=== PATIENT | female | born 1945 | race Caucasian/White ===

== ENCOUNTER 2024-05-05 09:19 | Day surgery (SDC) | payer MEDICARE, OTHER ==
[2024-05-01 10:07] VITALS: BMI 29.2
[~2024-05-05 09:19] MED LIST: SODIUM CHLORIDE 0.9% 1,000 ML IV SCH
[2024-05-05] MEDS: SODIUM CHLORIDE 0.9% 500 ML 500 ML IV ONE (09:34)
[2024-05-05 09:47] LABS: Glucose,Whole Blood 149 mg/dL (70-110)
[2024-05-05 09:55] VITALS: TEMP 98.4
[2024-05-05] MEDS ORDERED: PROPOFOL 10 MG/ML 20 ML VIAL IV ONE (10:56)
--- NOTE | 2024-05-05 12:07 | P.EPPROC ---
- EP Procedure Note Electrophysiology Procedure Note: Diagnosis Symptomatic atrial fibrillation, persistent Procedure Successful electrical cardioversion to sinus rhythm with a 200 J biphasic shock However there was immediate recurrence of atrial fibrillation 2 attempts were made and on both occasions there was immediate recurrence of atrial fibrillation Plan Will discuss rhythm control option with the patient since she is symptomatic despite adequate rate control Continue anticoagulation with Eliquis Currently patient is on diltiazem 180 mg p.o. daily
[2024-05-05 13:24] LABS: ALT 12 U/L (4-34); AST 19 U/L (14-36); African American GFR (CKD) 52 (>60 ml/min/1.73 sqM); Albumin 3.9 g/dL (3.5-5.0); Alkaline Phosphatase 141 U/L (38-126); Anion Gap 10 mmol/L; Blood Urea Nitrogen 23 mg/dL (7-17); Calcium 9.7 mg/dL (8.4-10.2); Carbon Dioxide 20 mmol/L (22-30); Chloride 108 mmol/L (98-107); Glucose 149 mg/dL (74-99); Non-African American GFR(CKD) 45 (>60 ml/min/1.73 sqM); Sodium 138 mmol/L (137-145); Total Bilirubin 0.6 mg/dL (0.2-1.3); Total Protein 6.9 g/dL (6.3-8.2)
[2024-05-05 14:52] VITALS: RESP 16
[2024-05-05 14:56] VITALS: BP 137/82; PULSE 86
[2024-05-05 15:33] LABS: T4, Free (Free Thyroxine) 2.19 ng/dL (0.78-2.19)
--- NOTE | 2024-05-05 17:15 | P.EPPROC ---
- EP Procedure Note Electrophysiology Procedure Note: This is Dr. Crowder dictating an H/P on this patient The patient was interviewed and examined IMPRESSION / ASSESSMENT: Persistent atrial fibrillation Complaining of tiredness shortness of breath exertional symptoms History of asthma Moderate carotid atherosclerosis hypertension Type 2 diabetes for about 7 years On replacement therapy for hypothyroidism Currently on Eliquis 5 mg twice daily PLAN: In view of her symptomatic atrial fibrillation despite adequate rate control electrical cardioversion is recommended Continue Eliquis HPI Patient remains tired fatigued short of breath despite rate control of atrial fibrillation No recent syncopal spells dizziness loss of consciousness ROS: No fever chills or rigors, no cough, phlegm or expectoration, no nausea, vomiting or diarrhea, no hematuria, dysuria, no musculoskeletal complaints, no strokes or seizures, no skin lesions. EXAMINATION: Blood pressure 180/84 mmHg pulse rate 128 beats a minute afebrile Breath sounds are reduced bilaterally Heart sounds S1-S2 are irregular but normal Mild kyphosis noted REVIEW OF LABS, ECG & MEDICAL DATA Medication list includes atorvastatin 20 mg p.o. daily, lisinopril 10 mg daily, levothyroxine 112 mcg p.o. daily Eliquis 5 mg twice daily and diltiazem long- acting 180 mg p.o. daily
== END 2024-05-05 13:07 | disposition home or self-care (01) ==
LOC: CATHEP 09:19
PROVIDERS: ATTEND Internal Medicine Clinical Cardiac Electrophysiology
DX: I48.19 Other persistent atrial fibrillation (principal); J45.909 Unspecified asthma, uncomplicated; E11.69 Type 2 diabetes mellitus with other specified complication; E78.5 Hyperlipidemia, unspecified; I10 Essential (primary) hypertension; I65.29 Occlusion and stenosis of unspecified carotid artery; E03.9 Hypothyroidism, unspecified; Z82.49 Family history of ischemic heart disease and other diseases of the circulatory system; Z88.5 Allergy status to narcotic agent; Z88.8 Allergy status to other drugs, medicaments and biological substances; Z91.09 Other allergy status, other than to drugs and biological substances; Z79.51 Long term (current) use of inhaled steroids; Z79.84 Long term (current) use of oral hypoglycemic drugs; Z79.890 Hormone replacement therapy; Z79.01 Long term (current) use of anticoagulants; Z79.899 Other long term (current) drug therapy
CPT/HCPCS: 92960; 84439; 80053; 84443; J2704

== ENCOUNTER 2024-07-14 06:00 | Day surgery (SDC) | payer MEDICARE, OTHER ==
[2024-07-14 06:26] LABS: Glucose,Whole Blood 163 mg/dL (70-110)
[2024-07-14 06:37] LABS: Anisocytosis Slight; Basophils # (A) 0.1 k/uL (0-0.2); Basophils % (A) 1 %; Eosinophils # (A) 0.6 k/uL (0-0.7); Eosinophils % (A) 7 %; HCT 37.8 % (34.0-46.0); HGB 12.2 gm/dL (11.4-16.0); Hypochromasia Slight; Lymphocytes # (A) 0.4 k/uL (1.0-4.8); Lymphocytes % (A) 5 %; MCH 25.2 pg (25.0-35.0); MCHC 32.2 g/dL (31.0-37.0); MCV 78.3 fL (80.0-100.0); Mean Platelet Volume 6.8; Microcytosis Slight; Monocytes # (A) 0.5 k/uL (0-1.0); Monocytes % (A) 6 %; Neutrophils # (A) 6.5 k/uL (1.3-7.7); Neutrophils % (A) 79 %; Platelet Count 304 k/uL (150-450); RBC 4.82 m/uL (3.80-5.40); RDW 16.2 % (11.5-15.5); WBC 8.2 k/uL (3.8-10.6)
[2024-07-14 06:55] LABS: ALT 11 U/L (4-34); AST 19 U/L (14-36); African American GFR (CKD) 49 (>60 ml/min/1.73 sqM); Albumin 3.8 g/dL (3.5-5.0); Alkaline Phosphatase 144 U/L (38-126); Anion Gap 8 mmol/L; Blood Urea Nitrogen 22 mg/dL (7-17); Calcium 9.3 mg/dL (8.4-10.2); Carbon Dioxide 24 mmol/L (22-30); Chloride 106 mmol/L (98-107); Glucose 168 mg/dL (74-99); Non-African American GFR(CKD) 42 (>60 ml/min/1.73 sqM); Potassium 3.9 mmol/L (3.5-5.1); Sodium 138 mmol/L (137-145); Total Bilirubin 0.6 mg/dL (0.2-1.3); Total Protein 6.7 g/dL (6.3-8.2)
[2024-07-14] MEDS ORDERED: HEPARIN SODIUM,PORCINE 10,000 UNIT/ML 1 ML VIAL ONE (07:21)
[2024-07-14] MEDS ORDERED: KETAMINE HCL IN 0.9 % NACL 50 MG/5 ML SYRINGE ONE (07:21)
[2024-07-14] MEDS ORDERED: MIDAZOLAM 2 MG/2 ML VIAL ONE (07:21)
[2024-07-14] MEDS ORDERED: HEPARIN SODIUM,PORCINE 5,000 UNIT/ML 1 ML VIAL ONE (07:21)
[2024-07-14] MEDS ORDERED: SUCCINYLCHOLINE CHLORIDE 200 MG/10 ML VIAL IV ONE (07:21)
[2024-07-14] MEDS ORDERED: PHENYLEPHRINE 10 MG/ML VIAL ONE (07:21)
[2024-07-14] MEDS ORDERED: fentaNYL (PF) 50 MCG/ML 2 ML AMP ONE (07:21)
[2024-07-14] MEDS ORDERED: PROPOFOL 10 MG/ML 20 ML VIAL IV ONE (07:21)
[2024-07-14] MEDS ORDERED: LIDOCAINE 1% INJ 10MG/ML (20 ML MDV) ONE (07:21)
[2024-07-14] MEDS: IV FLUID CONTINUATION 1,000 ML IV ONE (07:26)
[2024-07-14] MEDS: HEPARIN SODIUM,PORCINE 10,000 UNIT in SODIUM CHLORIDE 0.9% 1,000 ML IRRIGATION ONE (08:08)
[2024-07-14] MEDS: HEPARIN SODIUM,PORCINE (1 ML) 2,500 UNIT in SODIUM CHLORIDE 0.9% 250 ML IRRIGATION ONE (08:08)
[2024-07-14] MEDS: HEPARIN SOD,PORK IN 0.45% NACL 25,000 UNIT in 0.45% NACL 1 250ML.BAG IV ONE (08:10)
[2024-07-14] MEDS: LIDOCAINE 1% INJ 10MG/ML (20 ML MDV) SQ ONE (08:17)
[2024-07-14] MEDS: IOPAMIDOL-370 100ML BTL INJ ONE (10:06)
[2024-07-14] MEDS ORDERED: ALBUTEROL NEBULIZED 2.5 MG/3 ML INHALATION PRN (10:38)
--- NOTE | 2024-07-14 10:48 | P.HPCAR ---
History of Present Illness This is Dr. Crowder dictating an H/P on this patient The patient was interviewed and examined IMPRESSION / ASSESSMENT: Atrial fibrillation, persistent, symptomatic and failed treatment Hypertension Type 2 diabetes History of asthma PLAN: Treat with A-fib ablation for symptomatic atrial fibrillation Increase dose of lisinopril to 40 mg p.o. daily HPI Patient remains in atrial fibrillation with elevated resting heart rates despite diltiazem 180 mg p.o. daily long-acting She complains of symptoms of tiredness fatigue and shortness of breath Denies any chest pain syncope orthopnea PND transfer to [facility] [[email or web address]]: No fever chills or rigors, no cough, phlegm or expectoration, no nausea, vomiting or diarrhea, no hematuria, dysuria, no musculoskeletal complaints, no strokes or seizures, no skin lesions. EXAMINATION: Pulse rate 123 beats a minute blood pressure 183/82 mmHg at 205/88 mmHg afebrile Breath sounds are reduced bilaterally with scattered rhonchi no crackles Heart sounds S1-S2 normal no murmurs No JVD Abdomen soft nontender Extremities warm no edema REVIEW OF LABS, ECG & MEDICAL DATA White count 8.2 thousand, hemoglobin 12.2, hematocrit 37.8 and platelet count 304,000 Normal electrolytes sodium 138, potassium 3.9 BUN 22 and creatinine 1.2 Elevated glucose Mildly elevated alkaline phosphatase Physical Exam Vitals: Vital Signs Temp Pulse Resp BP BP Pulse Ox 07/14/24 06:18 98.4 F 123 H 16 205/88 183/82 94 L Intake and Output 07/13/24 07/14/24 07/14/24 22:59 06:59 14:59 Intake Total 800 Balance 800 Intake: IV 800 Other: Weight 81.5 kg Past Medical History Past Medical History: Atrial Fibrillation, Asthma, Diabetes Mellitus, Hypertension Additional Past Medical History / Comment(s): See Dr Crowder's H&P, current UTI and tx-pt to notify Dr Crowder, Hx went in for colonoscopy and bowel was twisted and adhereing to abdominal wall-had bowel resection-January 2024, 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 History of Any Multi-Drug Resistant Organisms: None Reported Past Surgical History: Bowel Resection, Hysterectomy, Orthopedic Surgery Additional Past Surgical History / Comment(s): jean shoulders rebuilt Past Anesthesia/Blood Transfusion Reactions: No Reported Reaction Additional Past Anesthesia/Blood Transfusion Reaction / Comment(s): no hx blood transfusion Smoking Status: Never smoker - Past Family History Mother Family Medical History: Cancer Additional Family Medical History / Comment(s): rectal CA Daughter(s) Family Medical History: Cancer Additional Family Medical History / Comment(s): uterine sarcoma, bladder cancer Physical Examination Vital Signs Temp Pulse Resp BP BP Pulse Ox 07/14/24 06:18 98.4 F 123 H 16 205/88 183/82 94 L Intake and Output 07/13/24 07/14/24 07/14/24 22:59 06:59 14:59 Intake Total 800 Balance 800 Intake: IV 800 Other: Weight 81.5 kg Results 07/14/24 06:20 07/14/24 06:20 Cardiac Enzymes 07/14/24 Range/Units 06:20 AST 19 (14-36) U/L CBC 07/14/24 Range/Units 06:20 WBC 8.2 (3.8-10.6) k/uL RBC 4.82 (3.80-5.40) m/uL Hgb 12.2 (11.4-16.0) gm/dL Hct 37.8 (34.0-46.0) % Plt Count 304 (150-450) k/uL Comprehensive Metabolic Panel 07/14/24 Range/Units 06:20 Sodium 138 (137-145) mmol/L Potassium 3.9 (3.5-5.1) mmol/L Chloride 106 (98-107) mmol/L Carbon Dioxide 24 (22-30) mmol/L BUN 22 H (7-17) mg/dL Creatinine 1.22 H (0.52-1.04) mg/dL Glucose 168 H (74-99) mg/dL Calcium 9.3 (8.4-10.2) mg/dL AST 19 (14-36) U/L ALT 11 (4-34) U/L Alkaline Phosphatase 144 H (38-126) U/L Total Protein 6.7 (6.3-8.2) g/dL Albumin 3.8 (3.5-5.0) g/dL Current Medications Generic Name Dose Route Start Last Admin Trade Name Freq PRN Reason Stop Dose Admin Acetaminophen 650 mg 07/14/24 10:41 Acetaminophen Tab 325 Mg Tab PO 08/13/24 10:40 Q6HR PRN Mild Pain (Scale 1 to 3) Albuterol Sulfate 2 puff 07/14/24 10:38 Albuterol Hfa Inhaler INHALATION 08/13/24 10:37 RT-Q4H PRN Shortness Of Breath Albuterol/Ipratropium 3 ml 07/14/24 10:38 Ipratropium-Albuterol 3 Ml Neb INHALATION 08/13/24 10:37 Q6H PRN sob Apixaban 5 mg 07/14/24 21:00 Apixaban 5 Mg Tab PO 08/13/24 20:59 BID ED Protocol Atorvastatin Calcium 20 mg 07/15/24 09:00 Atorvastatin 20 Mg Tab PO 08/14/24 08:59 DAILY ED Budesonide 0.5 mg 07/14/24 10:38 Budesonide 0.5 Mg/2 Ml Nebu INHALATION 08/13/24 10:37 RT-BID PRN Shortness Of Breath Acetaminophen 1,000 mg/ IV 100 mls @ 400 mls/hr 07/14/24 10:41 Solution IVPB 07/14/24 10:55 ONCE ONE Levothyroxine Sodium 112 mcg 07/15/24 09:00 Levothyroxine 112 Mcg Tab PO 08/14/24 08:59 QAM DE Lisinopril 20 mg 07/14/24 21:00 Lisinopril 5 Mg Tab PO 08/13/24 20:59 BID ED Montelukast Sodium 10 mg 07/15/24 09:00 Montelukast 10 Mg Tab PO 08/14/24 08:59 DAILY ED Non-Formulary Medication 180 mg 07/15/24 09:00 Diltiazem Hcl [Cardizem La] PO 08/14/24 08:59 DAILY ED Non-Formulary Medication 5 mg 07/15/24 09:00 Glipizide Xl PO 08/14/24 08:59 QAM ED Non-Formulary Medication 20 mg 07/14/24 21:00 Omeprazole [Omeprazole] PO 08/13/24 20:59 HS ED Sodium Chloride 12 ml 07/14/24 10:41 Sodium Chloride 0.9% Flush 10 Ml Syringe IV 08/13/24 10:40 Q12HR PRN Line Flush Intake and Output 07/13/24 07/14/24 07/14/24 22:59 06:59 14:59 Intake Total 800 Balance 800 Intake: IV 800 Other: Weight 81.5 kg 07/14/24 06:20 07/14/24 06:20
[2024-07-14 11:05] LABS: Glucose,Whole Blood 183 mg/dL (70-110)
--- NOTE | 2024-07-14 11:15 | P.EPPROC ---
- EP Procedure Note Electrophysiology Procedure Note: PROCEDURE Persistent A. fib ablation with PVI, left atrial septal ablation, left atrial roof ablation DIAGNOSIS Persistent atrial fibrillation, symptomatic, refractory to therapy RESULT No left atrial appendage mass seen on intracardiac echo, thickened pericardium with trace pericardial effusion predominantly around the atria Successful A. fib ablation/pulmonary vein isolation of all veins using cryo- ablation Complete entrance block in all 4 veins confirmed No evidence for phrenic nerve injury Left atrial septal ablation Left atrial roof ablation Ablation of tissue/teodora between left superior and left inferior pulmonary veins Esophageal deflection YES Patient remained in atrial fibrillation despite above ablations Electrical cardioversion with a synchronized shock across the chest YES PROCEDURE DETAILS Written informed consent prior to procedure. Patient brought to the EP lab. General anesthesia given. Heparin administered. A city maintained above 300 seconds Both groins prepped and draped per protocol and venous sheaths placed. Esophagus intubated, circa catheter for temperature monitoring an endoscope for possible esophageal deflection. Phrenic nerve monitoring performed. Esophageal temperature monitoring performed. Esophageal deflection performed if circa catheter overlapping with the balloon or circa temperature less than 27.5C Intracardiac echocardiography performed. Pericardium evaluated. Left atrial appendage evaluated. Left atrium evaluated along with pulmonary veins Transseptal catheterization performed under fluoroscopic guidance and intracardiac echo guidance Cryoablation sheath exchanged, balloon catheter along with achieve catheter placed in the left atrium. Pulmonary veins isolated in the following sequence: Left superior pulmonary vein followed by left inferior pulmonary vein, followed by right inferior pulmonary vein and lastly right superior pulmonary vein. Phrenic nerve stimulation along with capture thresholds within the SVC and right superior pulmonary vein to identify the phrenic nerve proximity to the cryo- balloon. Pulmonary veins isolated and confirmed with entrance and exit block. Phrenic nerve integrity confirmed at the end of the procedure Ablation of the left atrial roof performed with sequential lesions from the left superior to the right superior pulmonary veins. Ablation of the electrograms confirmed Ablation of the left atrial septum performed with cannulation of the superior branch of the right inferior to achieve ablation of the posterior septum of the left atrium. Ablation of electrograms confirmed Electrical cardioversion performed for persistence of atrial fibrillation alanis pite successful ablation. Diagnostic catheters for the high right atrium, His bundle, coronary sinus placed. LA and RA pressures recorded RA pressure: 10/4/7 LA pressure: 17/2/9 Diagnostic EP study with coronary sinus pacing and recording Baseline measurements: AH 84 HV 43 ms Sinus cycle length 884 ms, post cardioversion with TN interval 172 ms, QRS 93 and QT 322 ms Venous sheaths were removed and hemostasis assured with a closure device. Patient extubated and transferred to recovery PROCEDURES PERFORMED Diagnostic EP study CS pacing and recording Left and right transseptal catheterization Catheter the mapping of the tachycardia Intracardiac echocardiography Pulmonary vein isolation with transseptal and comprehensive EPS, [id number] Left atrial roof line, +[id number] Linear ablation, left atrium, +[id number] Electrical cardioversion with a synchronized shock across the chest [id number]
[2024-07-14] MEDS: ACETAMINOPHEN IV (For NPO) 1,000 MG in EMPTY BAG 1 BAG IVPB ONE (12:02)
[2024-07-14 12:10] LABS: Glucose,Whole Blood 150 mg/dL (70-110)
[2024-07-14] MEDS: SODIUM CHLORIDE 0.9% 1,000 ML IV SCH (15:01)
[2024-07-14 17:23] LABS: Glucose,Whole Blood 215 mg/dL (70-110)
[2024-07-14 20:06] LABS: Glucose,Whole Blood 213 mg/dL (70-110)
[2024-07-14] MEDS: PANTOPRAZOLE 40 MG TABLET PO SCH (20:13)
[2024-07-14] MEDS: lisinopriL 20 MG TAB PO SCH (20:13)
[2024-07-14] MEDS: ACETAMINOPHEN TAB 325 MG TAB PO PRN (20:13)
[2024-07-14] MEDS: APIXABAN 5 MG TAB PO SCH (23:15)
[2024-07-15 05:48] LABS: Glucose,Whole Blood 167 mg/dL (70-110)
[2024-07-15] MEDS: LEVOTHYROXINE 112 MCG TAB PO SCH (05:48)
[2024-07-15] MEDS: IPRATROPIUM-ALBUTEROL 3 ML NEB INHALATION PRN (07:50)
[2024-07-15] MEDS: BUDESONIDE 0.5 MG/2 ML NEBU INHALATION PRN (07:50)
[2024-07-15] MEDS: DILTIAZEM CD 180 MG CAP.ER.24H PO SCH (09:46)
[2024-07-15] MEDS: ATORVASTATIN 20 MG TAB PO SCH (09:46)
[2024-07-15] MEDS: MONTELUKAST 10 MG TAB PO SCH (09:46)
[2024-07-15 12:11] LABS: Glucose,Whole Blood 182 mg/dL (70-110)
[2024-07-15 16:02] VITALS: BP 178/70; PULSE 85; RESP 20; TEMP 98.6
== END 2024-07-15 16:29 | disposition home or self-care (01) ==
LOC: CATHEP 06:00 → 6NMEDSUR 10:12 → CATHEP 07-15 16:29
PROVIDERS: ATTEND Internal Medicine Clinical Cardiac Electrophysiology
CPT/HCPCS: 80053; 85025; 86850; 86900; 86901; 92960; 93656; 93657; 94640

== ENCOUNTER 2024-08-03 11:39 | Observation (INO) | payer MEDICARE, OTHER ==
--- NOTE | 2024-08-03 12:30 | ED ---
General Adult HPI - General Chief complaint: Arrhythmia/Palpitations Stated complaint: Tachycardia Time Seen by Provider: 08/03/24 12:05 Source: patient, family, RN notes reviewed Mode of arrival: ambulatory Limitations: no limitations - History of Present Illness Initial comments: Patient is a 78-year-old female presenting to the emergency department with concerns for high heart rate. Patient does have history of A-fib, ablation done 2 weeks ago. Patient has been doing fine. Patient is on Eliquis for DVT as well as A-fib. Patient was at her doctors today and heart rate was high and advised to come to the emergency department. No palpitations. No chest pain. No dyspnea - Related Data Home Medications Medication Instructions Recorded Confirmed Albuterol Sulfate [Ventolin HFA] 2 puff INHALATION RT-Q4H PRN 06/11/22 08/03/24 Omeprazole 20 mg PO HS 06/11/22 08/03/24 Apixaban [Eliquis] 5 mg PO BID 05/01/24 08/03/24 Atorvastatin [Lipitor] 20 mg PO HS 05/01/24 08/03/24 Montelukast Sodium 10 mg PO DAILY 05/01/24 08/03/24 Diltiazem Cd [Cardizem CD] 180 mg PO DAILY 08/03/24 08/03/24 Levothyroxine Sodium [Synthroid] 100 mcg PO DAILY 08/03/24 08/03/24 glipiZIDE XL [Glucotrol Xl] 5 mg PO DAILY 08/03/24 08/03/24 lisinopriL 40 mg PO HS 08/03/24 08/03/24 Allergies Allergy/AdvReac Type Severity Reaction Status Date / Time adhesive tape Allergy blisters,must Verified 08/03/24 12:17 use paper tape hydromorphone [From Dilaudid] Allergy Nausea & Verified 08/03/24 12:17 Vomiting perservative in epinephrine AdvReac vomits for Uncoded 08/03/24 12:17 3 days Review of Systems ROS Statement: Those systems with pertinent positive or pertinent negative responses have been documented in the HPI. ROS Other: All systems not noted in ROS Statement are negative. 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 History of Any Multi-Drug Resistant Organisms: None Reported Past Surgical History: Bowel Resection, Hysterectomy, Orthopedic Surgery Additional Past Surgical History / Comment(s): jean shoulders rebuilt Past Anesthesia/Blood Transfusion Reactions: No Reported Reaction Additional Past Anesthesia/Blood Transfusion Reaction / Comment(s): no hx blood transfusion Past Psychological History: No Psychological Hx Reported Smoking Status: Never smoker Past Alcohol Use History: None Reported Past Drug Use History: None Reported - Past Family History Mother Family Medical History: Cancer Additional Family Medical History / Comment(s): rectal CA Daughter(s) Family Medical History: Cancer Additional Family Medical History / Comment(s): uterine sarcoma, bladder cancer General Exam Limitations: no limitations General appearance: alert, in no apparent distress Head exam: Present: normocephalic Eye exam: Present: normal appearance Neck exam: Present: normal inspection Respiratory exam: Present: normal lung sounds bilaterally Cardiovascular Exam: Present: tachycardia, irregular rhythm Expanded Peripheral pulses: 2+: Radial (R), Radial (L), Posterior Tibialis (R), Posterior Tibialis (L) GI/Abdominal exam: Present: soft. Absent: tenderness Extremities exam: Present: calf tenderness (Left-sided with known DVT) Neurological exam: Present: alert Psychiatric exam: Present: normal affect, normal mood Skin exam: Present: normal color Course Vital Signs 08/03/24 08/03/24 08/03/24 11:40 12:03 13:43 Temperature 97.9 F 99.3 F Pulse Rate 135 H 111 H 97 Pulse Rate [ 104 H Label Designer ] Respiratory 18 18 18 Rate Blood Pressure 166/109 176/97 158/82 O2 Sat by Pulse 98 99 97 Oximetry EKG Findings - EKG Results: EKG: interpreted by ERMD (Q wave V1 V2.), normal axis, normal ST/T EKG shows: tachycardia, atrial fibrillation Medical Decision Making - Medical Decision Making Was pt. sent in by a medical professional or institution (Dr., PA, RELATIONSHIP EXECUTIVE, urgent care, hospital, or group home...) When possible be specific @ -Patient was sent in by her primary care physician Did you speak to anyone other than the patient for history (EMS, parent, family, police, friend...)? What history was obtained from this source @ -Family is present and helps provide history including history of A-fib and previous medical history Did you review nursing and triage notes (agree or disagree)? Why? @ -I reviewed and agree with nursing and triage notes Were old charts reviewed (outside hosp., previous admission, EMS record, old EKG, old radiological studies, urgent care reports/EKG's, group home records)? Report findings @ -Previous chest x-ray also reviewed revealed no acute process Differential Diagnosis (chest pain, altered mental status, abdominal pain women, abdominal pain men, vaginal bleeding, weakness, fever, dyspnea, syncope, headache, dizziness, GI bleed, back pain, seizure, CVA, palpatations, mental health, musculoskeletal)? @ -Differential Palpitations Ventricular arrhythmias, atrial arrhythmias, myocardial infarction, anemia, thyrotoxicosis, electrolyte imbalance, hypokalemia, pulmonary embolism, pulmonary disease, drugs, alcohol, anxiety, stress.... This is not meant to be an all-inclusive list. EKG interpreted by me (3pts min.). @ -As above X-rays interpreted by me (1pt min.). @ -Chest x-ray shows no acute process CT interpreted by me (1pt min.). @ -None done U/S interpreted by me (1pt. min.). @ -None done What testing was considered but not performed or refused? (CT, X-rays, U/S, labs)? Why? @ -None What meds were considered but not given or refused? Why? @ -None Did you discuss the management of the patient with other professionals (professionals i.e. ROSA Larson, RELATIONSHIP EXECUTIVE, lab, RT, psych nurse, social services counselor, consultants intern, t eacher, safety and security officer, family preservation caseworker)? Give summary @ -Case was discussed with both Dr. Anton and Dr. Varner covering for Dr. Montejo who will admit covering Dr. Weiss Was smoking cessation discussed for >3mins.? @ -No Was critical care preformed (if so, how long)? @ -31 minutes critical care time Were there social determinants of health that impacted care today? How? (Homelessness, low income, unemployed, alcoholism, drug addiction, transportation, low edu. Level, literacy, decrease access to med. care, [facility], rehab)? @ -No Was there de-escalation of care discussed even if they declined (Discuss DNR or withdrawal of care, Hospice)? DNR status @ -No What co-morbidities impacted this encounter? (DM, HTN, Smoking, COPD, CAD, Cancer, CVA, ARF, Chemo, Hep., AIDS, mental health diagnosis, sleep apnea, morbid obesity)? @ -History of atrial fibrillation Was patient admitted / discharged? Hospital course, mention meds given and route, prescriptions, significant lab abnormalities, going to OR and other pertinent info. @ -Patient presents with A-fib RVR. Cardizem drip started. Patient will be admitted with cardiac consult. Admission orders written. Undiagnosed new problem with uncertain prognosis? @ -No Drug Therapy requiring intensive monitoring for toxicity (Heparin, Nitro, Insu ashley, Cardizem)? @ -Patient is on Cardizem drip Were any procedures done? @ -No Diagnosis/symptom? @ -A-fib with RVR Acute, or Chronic, or Acute on Chronic? @ -Acute Uncomplicated (without systemic symptoms) or Complicated (systemic symptoms)? @ -Default Side effects of treatment? @ -No Exacerbation, Progression, or Severe Exacerbation? @ -No Poses a threat to life or bodily function? How? (Chest pain, [place], [place], pneumonia, PE, COPD, DKA, ARF, appy, cholecystitis, CVA, Diverticulitis, Homicidal, Suicidal, threat to staff... and all critical care pts) @ -To cardiac function - Lab Data Result diagrams: 08/03/24 12:28 08/03/24 12:28 Lab Results 08/03/24 08/03/24 08/03/24 Range/Units 12:28 12:28 12:28 WBC 7.1 (3.8-10.6) k/uL RBC 4.45 (3.80-5.40) m/uL Hgb 11.3 L (11.4-16.0) gm/dL Hct 35.1 (34.0-46.0) % MCV 79.0 L (80.0-100.0) fL MCH 25.4 (25.0-35.0) pg MCHC 32.2 (31.0-37.0) g/dL RDW 15.8 H (11.5-15.5) % Plt Count 330 (150-450) k/uL MPV 8.2 Neutrophils % 78 % Lymphocytes % 8 % Monocytes % 7 % Eosinophils % 5 % Basophils % 0 % Neutrophils # 5.5 (1.3-7.7) k/uL Lymphocytes # 0.6 L (1.0-4.8) k/uL Monocytes # 0.5 (0-1.0) k/uL Eosinophils # 0.4 (0-0.7) k/uL Basophils # 0.0 (0-0.2) k/uL Hypochromasia Slight Microcytosis Slight PT 11.0 (10.0-12.5) sec INR 1.0 (<1.2) APTT 27.0 (22.0-30.0) sec Sodium 140 (137-145) mmol/L Potassium 3.8 (3.5-5.1) mmol/L Chloride 108 H (98-107) mmol/L Carbon Dioxide 23 (22-30) mmol/L Anion Gap 9 mmol/L BUN 18 H (7-17) mg/dL Creatinine 1.02 (0.52-1.04) mg/dL Est GFR (CKD-EPI)AfAm 61 (>60 ml/min/1.73 sqM) Est GFR (CKD-EPI)NonAf 53 (>60 ml/min/1.73 sqM) Glucose 166 H (74-99) mg/dL Calcium 9.3 (8.4-10.2) mg/dL Magnesium 1.7 (1.6-2.3) mg/dL Total Bilirubin 0.5 (0.2-1.3) mg/dL AST 18 (14-36) U/L ALT 11 (4-34) U/L Alkaline Phosphatase 128 H (38-126) U/L Troponin I (0.000-0.034) ng/mL Total Protein 6.4 (6.3-8.2) g/dL Albumin 3.8 (3.5-5.0) g/dL TSH 0.048 L (0.465-4.680) mIU/L Free T4 1.86 (0.78-2.19) ng/dL 08/03/24 Range/Units 12:28 WBC (3.8-10.6) k/uL RBC (3.80-5.40) m/uL Hgb (11.4-16.0) gm/dL Hct (34.0-46.0) % MCV (80.0-100.0) fL MCH (25.0-35.0) pg MCHC (31.0-37.0) g/dL RDW (11.5-15.5) % Plt Count (150-450) k/uL MPV Neutrophils % % Lymphocytes % % Monocytes % % Eosinophils % % Basophils % % Neutrophils # (1.3-7.7) k/uL Lymphocytes # (1.0-4.8) k/uL Monocytes # (0-1.0) k/uL Eosinophils # (0-0.7) k/uL Basophils # (0-0.2) k/uL Hypochromasia Microcytosis PT (10.0-12.5) sec INR (<1.2) APTT (22.0-30.0) sec Sodium (137-145) mmol/L Potassium (3.5-5.1) mmol/L Chloride (98-107) mmol/L Carbon Dioxide (22-30) mmol/L Anion Gap mmol/L BUN (7-17) mg/dL Creatinine (0.52-1.04) mg/dL Est GFR (CKD-EPI)AfAm (>60 ml/min/1.73 sqM) Est GFR (CKD-EPI)NonAf (>60 ml/min/1.73 sqM) Glucose (74-99) mg/dL Calcium (8.4-10.2) mg/dL Magnesium (1.6-2.3) mg/dL Total Bilirubin (0.2-1.3) mg/dL AST (14-36) U/L ALT (4-34) U/L Alkaline Phosphatase (38-126) U/L Troponin I <0.012 (0.000-0.034) ng/mL Total Protein (6.3-8.2) g/dL Albumin (3.5-5.0) g/dL TSH (0.465-4.680) mIU/L Free T4 (0.78-2.19) ng/dL Critical Care Time Critical Care Time: Yes Disposition Clinical Impression: Atrial fibrillation, Tachycardia Disposition: ADMITTED IP TO THIS HOSP Is patient prescribed a controlled substance at d/c from ED?: No Referrals: Isreal Singh MD [Primary Care Provider] - 1-2 days Time of Disposition: 14:11
[2024-08-03 12:55] LABS: Basophils % (A) 0 %; Eosinophils # (A) 0.4 k/uL (0-0.7); Eosinophils % (A) 5 %; HCT 35.1 % (34.0-46.0); HGB 11.3 gm/dL (11.4-16.0); Hypochromasia Slight; Lymphocytes # (A) 0.6 k/uL (1.0-4.8); Lymphocytes % (A) 8 %; MCH 25.4 pg (25.0-35.0); MCHC 32.2 g/dL (31.0-37.0); Mean Platelet Volume 8.2; Microcytosis Slight; Monocytes # (A) 0.5 k/uL (0-1.0); Monocytes % (A) 7 %; Neutrophils # (A) 5.5 k/uL (1.3-7.7); Neutrophils % (A) 78 %; Platelet Count 330 k/uL (150-450); RBC 4.45 m/uL (3.80-5.40); RDW 15.8 % (11.5-15.5); WBC 7.1 k/uL (3.8-10.6)
[2024-08-03] MEDS: DILTIAZEM 125 MG in SODIUM CHLORIDE 0.9% 100 ML IV SCH (12:58)
[2024-08-03 13:01] LABS: ALT 11 U/L (4-34); AST 18 U/L (14-36); African American GFR (CKD) 61 (>60 ml/min/1.73 sqM); Albumin 3.8 g/dL (3.5-5.0); Alkaline Phosphatase 128 U/L (38-126); Anion Gap 9 mmol/L; Blood Urea Nitrogen 18 mg/dL (7-17); Calcium 9.3 mg/dL (8.4-10.2); Carbon Dioxide 23 mmol/L (22-30); Chloride 108 mmol/L (98-107); Glucose 166 mg/dL (74-99); Magnesium 1.7 mg/dL (1.6-2.3); Non-African American GFR(CKD) 53 (>60 ml/min/1.73 sqM); Potassium 3.8 mmol/L (3.5-5.1); Sodium 140 mmol/L (137-145); Total Bilirubin 0.5 mg/dL (0.2-1.3); Total Protein 6.4 g/dL (6.3-8.2)
--- NOTE | 2024-08-03 13:16 | XR ---
EXAMINATION TYPE: XR chest 2V DATE OF EXAM: 08/03/2024 12:52 PM CLINICAL INDICATION: Female, 78 years old with history of dysrhythmia; [facility] COMPARISON: None TECHNIQUE: XR chest 2V Frontal view of the chest. FINDINGS: Lungs/Pleura: There is no evidence of pleural effusion, focal consolidation, or pneumothorax. Pulmonary vascularity: Unremarkable. Heart/mediastinum: Cardiomediastinal silhouette is unremarkable. Musculoskeletal: No acute osseous pathology. Lateral shoulder arthroplasties appear intact. Other findings: None IMPRESSION: No acute cardiopulmonary disease/process. [facility] Alissa Delong, , 08/03/2024 1:14 PM
[2024-08-03 13:17] LABS: T4, Free (Free Thyroxine) 1.86 ng/dL (0.78-2.19)
[2024-08-03] MEDS ORDERED: NALOXONE 0.4 MG/ML 1 ML VIAL IV PRN (14:12)
[2024-08-03] MEDS: SODIUM CHLORIDE 0.9% 1,000 ML IV SCH (15:12)
[2024-08-03 20:39] LABS: Glucose,Whole Blood 170 mg/dL (70-110)
[2024-08-03] MEDS: lisinopriL 20 MG TAB PO SCH (21:02)
[2024-08-03] MEDS: PANTOPRAZOLE 40 MG TABLET PO SCH (21:03)
[2024-08-03] MEDS: APIXABAN 5 MG TAB PO SCH (21:03)
[2024-08-03] MEDS: ATORVASTATIN 20 MG TAB PO SCH (21:03)
--- NOTE | 2024-08-03 22:14 | HP ---
HISTORY AND PHYSICAL CHIEF COMPLAINT: Palpitations. HISTORY OF PRESENT ILLNESS: This is a 78-year-old woman with a past medical history of multiple medical problems including atrial fibrillation ablation which was done 2 weeks ago, complaining of some palpitations. The patient was found to have atrial fibrillation with fast ventricular rate. The patient was admitted for further evaluation and treatment. Cardizem drip was initiated. Some relief in the symptoms. There is no history of any fever, rigors, or chills. PAST MEDICAL HISTORY: Reviewed include atrial fibrillation, asthma. Rest of the history and rest of the chart is also reviewed. HOME MEDICATIONS: Reviewed include Ventolin. Doses and rest of medications reviewed. ALLERGIES: Adhesive tapes. Rest of the allergies noted. FAMILY HISTORY: History of rectal cancer. SOCIAL HISTORY: No history of smoking or alcohol. REVIEW OF SYSTEMS: Fourteen-point review is negative except as mentioned earlier. PHYSICAL EXAMINATION: VITAL SIGNS: Pulse is 111 and irregular, blood pressure 176/92, respirations 18. HEENT: Conjunctivae normal. CARDIOVASCULAR: S1, S2, irregular, tachycardic. RESPIRATIONS: A few scattered rhonchi. ABDOMEN: Soft. LEGS: No edema. NERVOUS SYSTEM: Nonfocal. SKIN: No ulcer, rash, bleeding. JOINTS: No active deforming arthropathy. LABORATORY DATA: Noted. ASSESSMENT: 1. Atrial fibrillation with fast ventricular rate. 2. History of atrial fibrillation and ablation. 3. Asthma. 4. Diabetes mellitus, type 2. 5. Hypertension. 6. Multiple complex medical issues. RECOMMENDATIONS AND DISCUSSION: This is a 78-year-old woman, who presented with multiple complex medical issues. We will monitor the patient closely. Cardizem drip. Closely follow with Cardiology. Resume the home medications. Monitor heart rate closely. Prognosis guarded because of multiple complex medical issues. Further recommendations to follow. See orders for further details. The patient is on Eliquis. MMODL / IJN: [id number] /
[2024-08-04 05:55] LABS: Glucose,Whole Blood 133 mg/dL (70-110)
[2024-08-04] MEDS: LEVOTHYROXINE 100 MCG TAB PO SCH (06:11)
[2024-08-04] MEDS: MONTELUKAST 10 MG TAB PO SCH (08:56)
[2024-08-04] MEDS: DILTIAZEM CD 180 MG CAP.ER.24H PO SCH (11:33)
[2024-08-04] MEDS: DILTIAZEM CD 240 MG CAP.ER.24H PO SCH (11:45)
[2024-08-04] MEDS ORDERED: BENZOCAINE SPRAY 1 CAN TOPICAL PRN (11:59)
[2024-08-04] MEDS ORDERED: MIDAZOLAM 2 MG/2 ML VIAL IV PRN (11:59)
[2024-08-04] MEDS ORDERED: fentaNYL (PF) 50 MCG/ML 5 ML AMP IVP PRN (11:59)
[2024-08-04 12:12] LABS: Glucose,Whole Blood 155 mg/dL (70-110)
--- NOTE | 2024-08-04 13:03 | P.CRDCN ---
History of Present Illness Consult date: 08/04/24 Reason for Consult (text): afib with rvr History of present illness: This is a 78-year-old female patient of Dr. Crowder with past medical history of persistent atrial fibrillation status post pulmonary vein isolation, hypertension, diabetes mellitus type 2, hypothyroidism. We have been asked to evaluate the patient for A-fib with RVR. Patient states she had onset of heart racing on Saturday. On Saturday, she went to her PCP and was sent to the hospital for evaluation. She denies chest pain or pressure. Stress test is scheduled in the office in October. Otherwise, patient was doing well after her recent ablation on 07/14. Telemetry is showing in and out of atrial flutter. She case has been discussed with Dr. Crowder and patient will undergo feels much better and back to normal. She states she has had electrocardioversion in the past but failed and converted immediately back to atrial fibrillation. Blood pressure 163/77, heart rate 52-75, pulse ox 99% on room air. Patient has been started on a Cardizem drip at 5 mg/h. Cardioversion this afternoon. He increase Cardizem CD to 240 mg now EKG: atrial fibrillation at 117 bpm, atrial flutter Chest x-ray: No acute process. Laboratory studies: WBC 7.1, hemoglobin 11.3, platelet count 330. Sodium 140, potassium 3.8, BUN 18, creatinine 1.02. Troponin negative x 3. TSH 0.048 and normal free T4 and free T3. Home cardiac medications: Eliquis 5 mg twice daily, atorvastatin 20 mg at bedtime, Cardizem CD 180 mg daily, lisinopril 40 mg at bedtime, also on levothyroxine 100 mcg daily Echocardiogram performed 03/30/2024 in the office revealed EF of 55%, moderate TR, moderate LVH, moderate MR, RVSP 52 mmHg. Ablation for atrial fibrillation 07/14/2024 Review Of Systems: At the time of my exam: CONSTITUTIONAL: Denies fever or chills. HEENT: Denies blurred vision, vision changes, or eye pain. Denies hemoptysis CARDIOVASCULAR: Denies chest pain. Denies orthopnea. Denies PND. Denies palpitations RESPIRATORY: Denies shortness of breath. GASTROINTESTINAL: Denies abdominal pain. Denies nausea or vomiting. HEMATOLOGIC: Denies bleeding disorders. GENITOURINARY: Denies any blood in urine. SKIN: Denies puritis. Denies rash. Physical examination: Gen: This is a 78-year-old female in no acute distress VS: reviewed HEENT: Head is atraumatic, normocephalic. Pupils equal, round. Sclerae is anicteric. NECK: Supple. No JVD. LUNGS: Clear to auscultation. No wheezes or rhonchi. No intercostal retractions. HEART: Irregular rate and rhythm. No murmur. ABDOMEN: Soft No tenderness. EXTREMITIES: No pedal edema. No calf tenderness. NEUROLOGICAL: Patient is awake, alert and oriented x3. Assessment: Persistent atrial fibrillation status post pulmonary isolation, presenting with typical atrial flutter and atrial fibrillation with RVR Recent ablation for atrial fibrillation performed on 07/14 Hypertension Diabetes mellitus type 2 Hypothyroidism Plan: Resume patient's home cardiac medications Increase Cardizem CD to 240 mg now and wean off Cardizem drip Schedule patient for cardioversion today with Dr. Crowder No need to repeat echocardiogram as this was done in March Further recommendations to follow based upon clinical course Thank you kindly for this consultation. Nurse practitioner note has been reviewed, I agree with documented findings and plan of care. Patient was seen and examined. 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 History of Any Multi-Drug Resistant Organisms: None Reported Past Surgical History: Bowel Resection, Hysterectomy, Orthopedic Surgery Additional Past Surgical History / Comment(s): jean shoulders rebuilt Past Anesthesia/Blood Transfusion Reactions: No Reported Reaction Additional Past Anesthesia/Blood Transfusion Reaction / Comment(s): no hx blood transfusion Past Psychological History: No Psychological Hx Reported Smoking Status: Never smoker Past Alcohol Use History: None Reported Past Drug Use History: None Reported - Past Family History Mother Family Medical History: Cancer Additional Family Medical History / Comment(s): rectal CA Daughter(s) Family Medical History: Cancer Additional Family Medical History / Comment(s): uterine sarcoma, bladder cancer Medications and Allergies Home Medications Medication Instructions Recorded Confirmed Type Albuterol Sulfate [Ventolin HFA] 2 puff INHALATION RT-Q4H PRN 06/11/22 08/03/24 History Omeprazole 20 mg PO HS 06/11/22 08/03/24 History Apixaban [Eliquis] 5 mg PO BID 05/01/24 08/03/24 History Atorvastatin [Lipitor] 20 mg PO HS 05/01/24 08/03/24 History Montelukast Sodium 10 mg PO DAILY 05/01/24 08/03/24 History Diltiazem Cd [Cardizem CD] 180 mg PO DAILY 08/03/24 08/03/24 History Levothyroxine Sodium [Synthroid] 100 mcg PO DAILY 08/03/24 08/03/24 History glipiZIDE XL [Glucotrol Xl] 5 mg PO DAILY 08/03/24 08/03/24 History lisinopriL 40 mg PO HS 08/03/24 08/03/24 History Allergies Allergy/AdvReac Type Severity Reaction Status Date / Time adhesive tape Allergy blisters,must Verified 08/03/24 12:17 use paper tape hydromorphone [From Dilaudid] Allergy Nausea & Verified 08/03/24 12:17 Vomiting perservative in epinephrine AdvReac vomits for Uncoded 08/03/24 12:17 3 days Physical Exam Vitals: Vital Signs Temp Pulse Pulse Pulse Pulse Resp BP 08/04/24 07:10 97.8 F 52 L 17 08/04/24 00:00 97.6 F 75 16 08/03/24 20:01 122 H 18 145/84 08/03/24 20:00 98.0 F 144 H 20 08/03/24 19:14 122 H 19 166/67 08/03/24 16:55 98.5 F 113 H 18 137/87 08/03/24 13:43 99.3 F 97 18 158/82 08/03/24 12:03 111 H 104 H 18 176/97 08/03/24 11:40 97.9 F 135 H 18 166/109 BP BP Pulse Ox 08/04/24 07:10 163/77 99 08/04/24 00:00 140/71 96 08/03/24 20:01 98 08/03/24 20:00 144/81 98 08/03/24 19:14 97 08/03/24 16:55 98 08/03/24 13:43 97 08/03/24 12:03 99 08/03/24 11:40 98 Intake and Output 08/03/24 08/04/24 08/04/24 22:59 06:59 14:59 Intake Total 58.583 Balance 58.583 Intake: Intake, IV Titration 58.583 Amount Diltiazem 125 mg In 58.583 Sodium Chloride 0.9% 100 ml @ 5 MG/HR 5 mls/hr IV .Q24H [facility] Rx#:[id number] Other: Voiding Method Toilet # Voids 1 2 Weight 82.1 kg 82.1 kg Results 08/03/24 12:28 08/03/24 12:28 Cardiac Enzymes 08/03/24 08/03/24 08/03/24 Range/Units 12:28 12:28 16:11 AST 18 (14-36) U/L Troponin I <0.012 <0.012 (0.000-0.034) ng/mL 08/03/24 Range/Units 19:45 AST (14-36) U/L Troponin I <0.012 (0.000-0.034) ng/mL Coagulation 08/03/24 Range/Units 12:28 PT 11.0 (10.0-12.5) sec APTT 27.0 (22.0-30.0) sec CBC 08/03/24 Range/Units 12:28 WBC 7.1 (3.8-10.6) k/uL RBC 4.45 (3.80-5.40) m/uL Hgb 11.3 L (11.4-16.0) gm/dL Hct 35.1 (34.0-46.0) % Plt Count 330 (150-450) k/uL Comprehensive Metabolic Panel 08/03/24 Range/Units 12:28 Sodium 140 (137-145) mmol/L Potassium 3.8 (3.5-5.1) mmol/L Chloride 108 H (98-107) mmol/L Carbon Dioxide 23 (22-30) mmol/L BUN 18 H (7-17) mg/dL Creatinine 1.02 (0.52-1.04) mg/dL Glucose 166 H (74-99) mg/dL Calcium 9.3 (8.4-10.2) mg/dL AST 18 (14-36) U/L ALT 11 (4-34) U/L Alkaline Phosphatase 128 H (38-126) U/L Total Protein 6.4 (6.3-8.2) g/dL Albumin 3.8 (3.5-5.0) g/dL Current Medications Generic Name Dose Route Start Last Admin Trade Name Freq PRN Reason Stop Dose Admin Albuterol Sulfate 2.5 mg 08/03/24 14:13 Albuterol Nebulized 2.5 Mg/3 Ml INHALATION RT-Q4H PRN Shortness Of Breath Apixaban 5 mg 08/03/24 21:00 08/03/24 21:03 Apixaban 5 Mg Tab PO 5 mg BID ED Administration Protocol Atorvastatin Calcium 20 mg 08/03/24 21:00 08/03/24 21:03 Atorvastatin 20 Mg Tab PO 20 mg HS ED Administration Diltiazem HCl 180 mg 08/04/24 09:00 Diltiazem Cd 180 Mg Cap.Er.24h PO DAILY ED Glipizide 2.5 mg 08/04/24 09:00 Glipizide 2.5 Mg Tab PO BID ED Diltiazem HCl 125 mg/ Sodium 125 mls @ 5 mls/hr 08/03/24 12:30 08/04/24 00:41 Chloride IV 5 mg/hr .Q24H ED 5 mls/hr Administration 5 MG/HR Sodium Chloride 1,000 mls @ 20 mls/hr 08/03/24 14:15 08/03/24 15:12 Saline 0.9% IV 20 mls/hr .Q24H ED Administration Levothyroxine Sodium 100 mcg 08/04/24 06:30 08/04/24 06:55 Levothyroxine 100 Mcg Tab PO 100 mcg DAILY@0630 ED Administration Lisinopril 40 mg 08/03/24 21:00 08/03/24 21:02 Lisinopril 20 Mg Tab PO 40 mg HS ED Administration Montelukast Sodium 10 mg 08/04/24 09:00 Montelukast 10 Mg Tab PO DAILY ED Naloxone HCl 0.2 mg 08/03/24 14:12 Naloxone 0.4 Mg/Ml 1 Ml Vial IV Q2M PRN Opioid Reversal Pantoprazole Sodium 40 mg 08/03/24 21:00 08/03/24 21:03 Pantoprazole 40 Mg Tablet PO 40 mg HS ED Administration Intake and Output 08/03/24 08/04/24 08/04/24 22:59 06:59 14:59 Intake Total 58.583 Balance 58.583 Intake: Intake, IV Titration 58.583 Amount Diltiazem 125 mg In 58.583 Sodium Chloride 0.9% 100 ml @ 5 MG/HR 5 mls/hr IV .Q24H [facility] Rx#:[id number] Other: Voiding Method Toilet # Voids 1 2 Weight 82.1 kg 82.1 kg 08/03/24 12:28 08/03/24 12:28
[2024-08-04] MEDS: SODIUM CHLORIDE 0.9% 1,000 ML IV SCH (13:08)
[2024-08-04] MEDS: DILTIAZEM 125 MG in SODIUM CHLORIDE 0.9% 100 ML IV SCH (15:17)
[2024-08-04 17:35] LABS: Glucose,Whole Blood 102 mg/dL (70-110)
[2024-08-04] MEDS: SODIUM CHLORIDE 0.9% 300 ML IV ONE (18:01)
[2024-08-04] MEDS ORDERED: HEPARIN SODIUM,PORCINE 5,000 UNIT/ML 1 ML VIAL ONE (18:10)
[2024-08-04] MEDS ORDERED: PROPOFOL 10 MG/ML 20 ML VIAL IV ONE (18:10)
--- NOTE | 2024-08-04 18:27 | P.EPPROC ---
- EP Procedure Note Electrophysiology Procedure Note: Diagnosis Atrial tachycardia, likely atrial flutter with RVR, symptomatic Status post A-fib ablation with PVI and left atrial septal ablation and roof ablation in June 2024, less than 3 weeks back Difficult rate control on oral diltiazem On Eliquis Details Successful electrical cardioversion to sinus rhythm with a 200 J biphasic shock in the AP configuration Plan Start Multaq 400 mg twice daily Reduce the dose of diltiazem 180 mg p.o. daily Continue Eliquis uninterrupted If she has recurrent atrial tachycardia despite this, 3 months after index ablation (July 17, 2024), then we will proceed with A. tach/a flutter ablation Until then medical treatment would be advisable Avoid amiodarone
[2024-08-04] MEDS: DRONEDARONE 400 MG TAB PO SCH (18:43)
[2024-08-04 20:03] LABS: Glucose,Whole Blood 130 mg/dL (70-110)
--- NOTE | 2024-08-04 23:03 | P.PN ---
Progress Note - Text Progress Note Date: 08/04/24 August 04: Patient on July 14 had undergone successful A-fib ablation pulmonary vein isolation using cryoablation by Dr. Hansel Crowder. Patient now presented with palpitations. Put on IV Cardizem drip. This morning heart rate is controlled. Did tolerate diet. No chest pain or palpitation since TSH is low. Will cut back Synthroid to 88 mcg. Discussed with patient. Active Medications Albuterol Sulfate (Albuterol Nebulized 2.5 Mg/3 Ml) 2.5 mg INHALATION RT-Q4H PRN PRN Reason: Shortness Of Breath Apixaban (Apixaban 5 Mg Tab) 5 mg PO BID [facility]; Protocol Last Admin: 08/04/24 20:37 Dose: 5 mg Atorvastatin Calcium (Atorvastatin 20 Mg Tab) 20 mg PO HS [facility] Last Admin: 08/04/24 20:37 Dose: 20 mg Benzocaine (Benzocaine [place] 1 Can) 1 spray TOPICAL TID PRN PRN Reason: Skin Irritation Diltiazem HCl (Diltiazem Cd 180 Mg Cap.Er.24h) 180 mg PO DAILY [facility] Dronedarone (Dronedarone 400 Mg Tab) 400 mg PO AC-BID [facility] Last Admin: 08/04/24 18:43 Dose: 400 mg Fentanyl Citrate (Fentanyl (Pf) 50 Mcg/Ml 5 Ml Amp) 50 mcg IVP ONCE PRN PRN Reason: Pre-Op Stop: 08/05/24 05:59 Glipizide (Glipizide 2.5 Mg Tab) 2.5 mg PO BID [facility] Last Admin: 08/04/24 20:37 Dose: 2.5 mg Diltiazem HCl 125 mg/ Sodium (Chloride) 125 mls @ 5 mls/hr IV .Q24H [facility] Stop: 08/05/24 10:00 Last Infusion: 08/04/24 18:10 Dose: 0 mg/hr, 0 mls/hr Levothyroxine Sodium (Levothyroxine 88 Mcg Tab) 88 mcg PO DAILY@0630 [facility] Lisinopril (Lisinopril 20 Mg Tab) 40 mg PO HS [facility] Last Admin: 08/04/24 20:37 Dose: 40 mg Midazolam HCl (Midazolam 2 Mg/2 Ml Vial) 1 mg IV ONCE PRN PRN Reason: Pre-Op Stop: 08/05/24 05:59 Montelukast Sodium (Montelukast 10 Mg Tab) 10 mg PO DAILY [facility] Last Admin: 08/04/24 08:56 Dose: 10 mg Naloxone HCl (Naloxone 0.4 Mg/Ml 1 Ml Vial) 0.2 mg IV Q2M PRN PRN Reason: Opioid Reversal Pantoprazole Sodium (Pantoprazole 40 Mg Tablet) 40 mg PO HS [facility] Last Admin: 08/04/24 20:37 Dose: 40 mg On examination: VITAL SIGNS: [97.8, 63, 17, 153 x 73, 98% room air] GENERAL APPEARANCE: Sitting on bed awake not in distress. HEENT: Normal external appearance of nose and ear. Oral cavity normal EYES: Pupils equal. Conjunctiva normal. NECK: JVD not raised. Mass not palpable. RESPIRATORY: Respiratory effort normal. Lungs clear to auscultation. CARDIOVASCULAR: Heart sounds regular. No edema. ABDOMEN: Soft. Liver and spleen not palpable. No tenderness. No mass palpable. PSYCHIATRY: Alert and oriented x3. Mood and affect normal. INVESTIGATIONS, reviewed in the clinical context: August 03: White count 7.1 hemoglobin 11.3 platelets 330 potassium 3.8 creatinine 1.02 Troponin I x 3 less than 0.012 TSH 0.048 Assessment plan: -Persistent atrial flutter fibrillation. Patient undergone ablation pulmonary vein isolation with cryoablation by Dr. Nancy Crowder on July 14. Now presents with uncontrolled rate IV Cardizem drip. Today patient started on Multaq by cardiology. Cardizem CD home dose also being resumed. Continue Eliquis -Essential hypertension Cardizem CD 180 mg a day lisinopril 40 mg nightly -Hypothyroidism over replacement. TSH is 0.048 Cut back dose of Synthroid to 88 mcg a day -GERD PPI -Diabetes mellitus type 2, on oral hypoglycemic Glucotrol XL -Intermittent asthma Ventolin HFA every 4 as needed -Obesity BMI 31.1 Weight loss measures Care was discussed with patient. Questions answered. Follow with cardiology.
[2024-08-05] MEDS: ALBUTEROL NEBULIZED 2.5 MG/3 ML INHALATION PRN (01:18)
[2024-08-05 05:16] LABS: Glucose,Whole Blood 105 mg/dL (70-110)
[2024-08-05] MEDS ORDERED: LEVOTHYROXINE 88 MCG TAB PO SCH (06:30)
[2024-08-05 07:41] VITALS: BP 149/73; PULSE 71; RESP 16; TEMP 97.7
[2024-08-05] MEDS: DILTIAZEM CD 180 MG CAP.ER.24H PO SCH (08:53)
--- NOTE | 2024-08-05 13:39 | P.PN ---
Subjective Progress Note Date: 08/05/24 Reason for Consult (text): afib with rvr History of present illness: This is a 78-year-old female patient of Dr. Crowder with past medical history of persistent atrial fibrillation status post pulmonary vein isolation, hypertension, diabetes mellitus type 2, hypothyroidism. We have been asked to evaluate the patient for A-fib with RVR. Patient states she had onset of heart racing on Saturday. On Saturday, she went to her PCP and was sent to the hospital for evaluation. She denies chest pain or pressure. Stress test is scheduled in the office in October. Otherwise, patient was doing well after her recent ablation on 07/14. Telemetry is showing in and out of atrial flutter. She case has been discussed with Dr. Crowder and patient will undergo feels much better and back to normal. She states she has had electrocardioversion in the past but failed and converted immediately back to atrial fibrillation. Blood pressure 163/77, heart rate 52-75, pulse ox 99% on room air. Patient has been started on a Cardizem drip at 5 mg/h. Cardioversion this afternoon. He increase Cardizem CD to 240 mg now EKG: atrial fibrillation at 117 bpm, atrial flutter Chest x-ray: No acute process. Laboratory studies: WBC 7.1, hemoglobin 11.3, platelet count 330. Sodium 140, potassium 3.8, BUN 18, creatinine 1.02. Troponin negative x 3. TSH 0.048 and normal free T4 and free T3. Home cardiac medications: Eliquis 5 mg twice daily, atorvastatin 20 mg at bedtim e, Cardizem CD 180 mg daily, lisinopril 40 mg at bedtime, also on levothyroxine 100 mcg daily Echocardiogram performed 03/30/2024 in the office revealed EF of 55%, moderate TR, moderate LVH, moderate MR, RVSP 52 mmHg. Ablation for atrial fibrillation 07/14/202408/05 Yesterday, patient underwent cardioversion with Dr. Crowder. Patient remains in sinus rhythm with rate 60s to 80s. Patient states that she is feeling much better today. Thyroid medication was reduced, recommendations were for patient to start Multaq 400 mg twice daily and diltiazem was back to 180 mg daily. Unfortunately, patient's insurance will not cover Multaq and the [id number] cost to the patient was thousand dollars a month. Dr. Crowder advised to change to flecainide 50 mg twice daily. Physical examination: Gen: This is a 78-year-old female in no acute distress VS: reviewed HEENT: Head is atraumatic, normocephalic. Pupils equal, round. Sclerae is anicteric. NECK: Supple. No JVD. LUNGS: Clear to auscultation. No wheezes or rhonchi. No intercostal retractions. HEART: Irregular rate and rhythm. No murmur. ABDOMEN: Soft No tenderness. EXTREMITIES: No pedal edema. No calf tenderness. NEUROLOGICAL: Patient is awake, alert and oriented x3. Assessment: Persistent atrial fibrillation status post pulmonary isolation, presenting with typical atrial flutter and atrial fibrillation with RVR Recent ablation for atrial fibrillation performed on 07/14 Hypertension Diabetes mellitus type 2 Hypothyroidism Plan: Continue patient's home cardiac medications Patient is scheduled to follow-up with Dr. Crowder on 08/18. Nurse practitioner note has been reviewed, I agree with documented findings and plan of care. Patient was seen and examined. Objective - Vital Signs Vital signs: Vital Signs Temp 97.7 F 08/05/24 07:41 Pulse 71 08/05/24 07:41 Resp 16 08/05/24 07:41 BP 149/73 08/05/24 07:41 Pulse Ox 96 08/05/24 07:41 FiO2 Intake & Output 08/04/24 08/05/24 08/05/24 18:59 06:59 18:59 Intake Total 758.500 Balance 758.500 Weight 82.1 kg Intake: IV 100 Intake, IV Titration 68.500 Amount Diltiazem 125 mg In 54.083 Sodium Chloride 0.9% 100 ml @ 5 MG/HR 5 mls/hr IV .Q24H [facility] Rx#:[id number] Diltiazem 125 mg In 14.417 Sodium Chloride 0.9% 100 ml @ 5 MG/HR 5 mls/hr IV .Q24H [facility] Rx#:[id number] Oral 590 Other: # Voids 5 3 # Bowel Movements 0 - Labs CBC & Chem 7: 08/03/24 12:28 08/03/24 12:28 Labs: Abnormal Lab Results - Last 24 Hours (Table) 08/04/24 08/04/24 Range/Units 12:11 20:01 POC Glucose (mg/dL) 155 H 130 H (70-110) mg/dL
--- NOTE | 2024-08-05 16:50 | P.DS ---
Providers Date of admission: 08/03/24 14:12 Expected date of discharge: 08/05/24 Attending physician: Leon Montejo Consults: 08/03/24 14:12 Consult Physician Urgent Consulting Provider: Hansel Crowder Consult Reason/Comments: a fib rvr Do you want consulting provider notified?: Yes Primary care physician: [facility] Course: August 04: Patient on July 14 had undergone successful A-fib ablation pulmonary vein isolation using cryoablation by Dr. Hansel Crowder. Patient now presented with palpitations. Put on IV Cardizem drip. This morning heart rate is controlled. Did tolerate diet. No chest pain or palpitation since TSH is low. Will cut back Synthroid to 88 mcg. Discussed with patient. August 05: Patient was cardioverted to sinus rhythm by Dr. Nancy Crowder yesterday. Was placed on Multaq. Remains in sinus rhythm this morning. Seen by Dr. Jarrett. To be discharged. No cardiac symptoms. Follow-up outpatient. On examination: VITAL SIGNS: 97.7, 71, 16, 149 personally 3, 96% room air GENERAL APPEARANCE: Comfortable. HEENT: Normal external appearance of nose and ear. Oral cavity normal EYES: Pupils equal. Conjunctiva normal. NECK: JVD not raised. Mass not palpable. RESPIRATORY: Respiratory effort normal. Lungs clear to auscultation. CARDIOVASCULAR: Heart sounds regular. No edema. ABDOMEN: Soft. Liver and spleen not palpable. No tenderness. No mass palpable. PSYCHIATRY: Alert and oriented x3. Mood and affect normal. INVESTIGATIONS, reviewed in the clinical context: August 03: White count 7.1 hemoglobin 11.3 platelets 330 potassium 3.8 creatinine 1.02 Troponin I x 3 less than 0.012 TSH 0.048 Assessment plan: -Persistent atrial tachycardia/atrial flutter . Patient undergone ablation pulmonary vein isolation with cryoablation by Dr. Nancy Crowder on July 14. presents with uncontrolled rate Initially IV Cardizem Continue Multaq by cardiology. Cardizem CD home dose also being resumed. Continue Eliquis Cardioverted by Dr. Hansel Crowder to sinus rhythm on August 04 -Essential hypertension Cardizem CD 180 mg a day lisinopril 40 mg nightly -Hypothyroidism over replacement. TSH is 0.048 Cut back dose of Synthroid to 88 mcg a day -GERD PPI -Diabetes mellitus type 2, on oral hypoglycemic Glucotrol XL -Intermittent asthma Ventolin HFA every 4 as needed -Obesity BMI 31.1 Weight loss measures Disposition: Home Plan - Discharge Summary Discharge Rx Participant: No New Discharge Prescriptions: New Levothyroxine Sodium [Synthroid] 88 mcg PO DAILY@0600 #30 tab Flecainide [Tambocor] 50 mg PO Q12HR #60 tablet Continue Omeprazole 20 mg PO HS Albuterol Sulfate [Ventolin HFA] 2 puff INHALATION RT-Q4H PRN PRN Reason: Shortness Of Breath Diltiazem Cd [Cardizem CD] 180 mg PO DAILY Montelukast Sodium 10 mg PO DAILY Atorvastatin [Lipitor] 20 mg PO HS Apixaban [Eliquis] 5 mg PO BID lisinopriL 40 mg PO HS glipiZIDE XL [Glucotrol XL] 5 mg PO DAILY Discontinued Levothyroxine Sodium [Synthroid] 100 mcg PO DAILY Discharge Medication List Albuterol Sulfate [Ventolin HFA] 2 puff INHALATION RT-Q4H PRN 06/11/22 [History] Omeprazole 20 mg PO HS 06/11/22 [History] Apixaban [Eliquis] 5 mg PO BID 05/01/24 [History] Atorvastatin [Lipitor] 20 mg PO HS 05/01/24 [History] Montelukast Sodium 10 mg PO DAILY 05/01/24 [History] Diltiazem Cd [Cardizem CD] 180 mg PO DAILY 08/03/24 [History] glipiZIDE XL [Glucotrol XL] 5 mg PO DAILY 08/03/24 [History] lisinopriL 40 mg PO HS 08/03/24 [History] Flecainide [Tambocor] 50 mg PO Q12HR #60 tablet 08/05/24 [Rx] Levothyroxine Sodium [Synthroid] 88 mcg PO DAILY@0600 #30 tab 08/05/24 [Rx] Follow up Appointment(s)/Referral(s): Hansel Crowder MD [STAFF PHYSICIAN] - 08/18/24 10:30 am Isreal Singh MD [Primary Care Provider] - 1-2 days Patient Instructions/Handouts: A-fib (Atrial Fibrillation) (DC), Cardioversion (DC) Discharge Disposition: HOME SELF-CARE
[2024-08-06] MEDS ORDERED: LEVOTHYROXINE 88 MCG TAB PO SCH (06:00)
== END 2024-08-05 13:29 | disposition home or self-care (01) ==
LOC: EC 11:39 → 3SCARD 14:12 → 6NMEDSUR 16:25
PROVIDERS: ADMIT Hospitalist; ATTEND Hospitalist
DX: I48.92 Unspecified atrial flutter (principal); I47.19 Other supraventricular tachycardia; I10 Essential (primary) hypertension; E03.9 Hypothyroidism, unspecified; K21.9 Gastro-esophageal reflux disease without esophagitis; E11.9 Type 2 diabetes mellitus without complications; J45.20 Mild intermittent asthma, uncomplicated; E66.9 Obesity, unspecified; Z68.31 Body mass index [BMI] 31.0-31.9, adult; Z79.01 Long term (current) use of anticoagulants; Z79.890 Hormone replacement therapy; Z79.899 Other long term (current) drug therapy; Z80.8 Family history of malignant neoplasm of other organs or systems
CPT/HCPCS: 96366 ×3; 96365; 99291; 36415; 94640; 93005; 92960; 84439; 84481; 80053; 83735; 84443; 84484; 85025; 85610; 85730; 71046; G0378 ×4; J1644; J2704